=== PATIENT | female | born 1985 | race American Indian/Alaskan Native ===

== ENCOUNTER 2022-04-21 07:44 | Emergency (ER) | payer MEDICAID ==
[2022-04-21] MEDS ORDERED: dexAMETHasone 4 MG/ML VIAL IM ONE (10:41)
[2022-04-21] MEDS ORDERED: ACETAMINOPHEN W/CODEINE 300-30 MG TAB PO ONE (10:42)
[2022-04-21 12:10] LABS: HCG Qualitative,Urine Negative (Negative)
[2022-04-21] MEDS ORDERED: FLUORESCEIN 1 MG STRIP OP ONE (12:34)
[2022-04-21] MEDS ORDERED: TETRACAINE 0.5% OPHTH SOLN 4ML OU ONE (12:35)
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
[2022-04-21] MEDS ORDERED: KETOROLAC 10 MG TAB PO ONE (13:41)
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
[2022-04-21 14:25] VITALS: BP 128/74
== END 2022-04-21 14:23 | disposition home or self-care (01) ==
LOC: ED 07:44
DX: S05.02XA Injury of conjunctiva and corneal abrasion without foreign body, left eye, initial encounter (principal); R22.0 Localized swelling, mass and lump, head; R51.9 Headache, unspecified; H11.32 Conjunctival hemorrhage, left eye; Z91.09 Other allergy status, other than to drugs and biological substances; F17.200 Nicotine dependence, unspecified, uncomplicated; Y08.89XA Assault by other specified means, initial encounter; Y93.89 Activity, other specified; Y92.89 Other specified places as the place of occurrence of the external cause; Y99.8 Other external cause status
CPT/HCPCS: 70450; 70486; 81025; 99283; 99284; J1100